=== PATIENT | female | born 1995 | race Caucasian/White ===

== ENCOUNTER 2020-08-05 09:52 | Outpatient (CLI) | payer BC ==
--- NOTE | 2020-08-05 11:53 | MRI ---
MRI BRAIN NONCONTRAST: DATE: 08/05/2020. HISTORY: A 24-year-old female with ICD-10: Q07.00, Arnold-Chiari malformation. Chronic headache for 6 years . FINDINGS: The ventricles are normal in size and configuration. There is no major intraaxial signal abnormality , restricted diffusion, midline shift or any other mass effect, recent intraaxial hemorrhage, or extr aaxial fluid collection. The cerebellar tonsils are normal in shape and position, and do not protrud e inferior to the foramen magnum (i.e., there is no Chiari malformation). Posterior fossa is normal. IMPRESSION: Normal. jn[] POS: AH
== END 2020-08-05 09:53 | disposition home or self-care (01) ==
LOC: BICMRI 09:52
PROVIDERS: ATTEND Anesthesiology Pain Medicine
DX: Q07.00 Arnold-Chiari syndrome without spina bifida or hydrocephalus (principal)
CPT/HCPCS: 70551